=== PATIENT | male | born 1970 | race Native Hawaiian/Other Pacific Islander ===

== ENCOUNTER 2020-09-08 12:04 | Outpatient (CLI) | payer OTHER | END 2020-09-08 19:25 | disposition home or self-care (01) | LOC: RAD 12:04 | PROVIDERS: ATTEND Nurse Practitioner Primary Care | DX: M54.5 Low back pain (principal) ==

== ENCOUNTER 2020-10-29 18:53 | Emergency (ER) | payer OTHER ==
[~2020-10-29] VITALS: Ht 33 cm; Wt 0.5 kg
[2020-10-29 19:34] LABS: PLATELET COUNT 227 K/uL (142-355)
[2020-10-29 19:39] LABS: POTASSIUM 3.8 mmol/L (3.6-5.2)
[2020-10-29 20:04] LABS: PARTIAL THROMBOPLASTIN TIME 24.3 SECONDS (24.5-33.6)
[2020-10-29 21:21] VITALS: BP 145/98; TEMP 98.5
== END 2020-10-29 21:22 | disposition home or self-care (01) ==
LOC: ED 18:53
PROVIDERS: Hospitalist
DX: R10.84 Generalized abdominal pain (principal); Z87.442 Personal history of urinary calculi
CPT/HCPCS: 36415; 80053; 81000; 85027; 85610; 85730; 96360; 96375; 99284; J1200; J1885; J2270; J2405